=== PATIENT | female | born 1960 | race Two or more races ===

== ENCOUNTER → 2024-05-22 | Outpatient (CLI) | payer BC, SELFPAY ==
--- NOTE | 2024-05-22 10:30 | XR_ITS ---
Examination: Screening digital mammography, bilateral Computer aided detection 3-D breast Tomosynthesis, bilateral Date and time of exam: May 22, 2024 1024 hours Compared to mammograms dating to June 04, 2013 Indication: Screening Technique: Nonmagnified MLO, CC views of the breasts to been obtained, reconstructed from 3-D Tomosynthesis images. R2 computer aided detection program utilized for evaluation of suspicious masses and/or abnormal calcifications. 3-D Tomosynthesis images obtained. Findings: Scattered areas of fibroglandular density. Benign calcifications. No interval suspicious masses Impression: BI-RADS category II: Benign Findings. Recommend 1 year follow-up mammogram.
== END | disposition home or self-care (01) ==
LOC: CDIM 10:12
PROVIDERS: PCP Specialist; Referring Provider Specialist; Visit Provider Specialist
DX: Z12.31 Encounter for screening mammogram for malignant neoplasm of breast (principal); R92.323 Mammographic fibroglandular density, bilateral breasts; R92.1 Mammographic calcification found on diagnostic imaging of breast
CPT/HCPCS: 77063; 77067

== ENCOUNTER 2024-12-03 06:45 | Day surgery (SDC) | payer BC, SELFPAY ==
[2024-11-30 13:16] VITALS: BMI 27.3
[2024-12-03] VITALS (8 sets, daily range): BP systolic 113–150; BP diastolic 66–78; PULSE 49–59; RESP 12–20; TEMP 36.4–36.7; O2SAT 95–99; BMI 26.9
[2024-12-03] MEDS: MIDAZOLAM INJ 1 MG/ML VIAL 2 ML (ASD USE ONLY) 2 MG IVP (07:51)
[2024-12-03] MEDS: fentaNYL CIT INJ 50 mCg/ML AMP 2ML (ASD USE ONLY) IVP (07:51)
[2024-12-03] MEDS: SODIUM CHLORIDE 0.9% 500 ML 500 ML 20 ML IV (07:52)
== END 2024-12-03 08:45 | disposition home or self-care (01) ==
PROVIDERS: PCP Family Medicine; Referring Provider Surgery; Visit Provider Surgery
PROC: 0DBE8ZX Excision of Large Intestine, Via Natural or Artificial Opening Endoscopic, Diagnostic (ICD-10-PCS; CPT 45380; principal; 2024-12-03 07:30)
DX: K62.5 Hemorrhage of anus and rectum (principal); K64.1 Second degree hemorrhoids
CPT/HCPCS: 45378; A4649; J1200; J2250; J3010; J7999

== ENCOUNTER 2025-01-29 07:55 | Day surgery (SDC) | payer BC, SELFPAY ==
--- NOTE | 2025-01-23 11:12 | EKG_ITS ---
[facility] Test Date: 2025-01-23 Pat Name: REN INFANTE Department: Room: - Gender: Female Flooring Mechanic: GUTIERREZ : 1960 Requested By: Dave Stover Order Number: [id number] Reading MD: Dave Stover Measurements Intervals Converse Rate: 55 P: 37 [place]: 154 QRS: 62 QRSD: 97 T: 66 QT: 427 QTc: 410 Interpretive Statements SINUS BRADYCARDIA No previous ECG available for comparison /store/S0/[id number]/[id number]
[2025-01-23 11:15] VITALS: BMI 29.0
[2025-01-23 12:24] LABS: Basophils # (Auto) 0.1 Thou/mm3 (0.0-0.2); Basophils % (Auto) 1 % (0-2.5); Eosinophils # (Auto) 0.0 Thou/mm3 (0.0-0.5); Eosinophils % (Auto) 1 % (0-10); Hematocrit 41.6 % (36.0-46.0); Hemoglobin 13.7 g/dL (12.0-16.0); Immature Granulocytes Auto 0.02 Thou/mm3 (0.00-0.00); Lymphocytes # (Auto) 2.1 Thou/mm3 (1.0-4.8); Lymphocytes % (Auto) 37 % (10-50); Mean Corpuscular HGB Conc 32.9 g/dl (31.0-37.0); Mean Corpuscular Hemoglobin 29.1 pg (25.0-35.0); Mean Corpuscular Volume 89 fL (80-100); Monocytes # (Auto) 0.4 Thou/mm3 (0.0-0.8); Monocytes % (Auto) 7 % (0-12); Neutrophils # (Auto) 3.1 Thou/mm3 (1.8-7.7); Neutrophils % (Auto) 54 % (37-80); Nucleated Red Blood Cell # 0.00 Thou/mm3 (0.00-0.00); Nucleated Red Blood Cell % 0 /100 WBC (0); Platelet Count 234 Thou/mm3 (140-440); RDW Standard Deviation 42.9 fL (36.4-46.3); Red Blood Count 4.70 Miln/mm3 (4.00-5.20); White Blood Count 5.7 Thou/mm3 (3.6-11.0)
[2025-01-23 12:36] LABS: Alanine Aminotransferase 24 U/L (10-49); Albumin, Serum 4.9 gm/dL (3.4-4.8); Albumin/Globulin Ratio 2.1 (1.2-2.2); Alkaline Phosphatase 131 U/L (46-116); Anion Gap 9 (7-16); Aspartate Amino Transferase 26 U/L (0-34); BUN/Creatinine Ratio 15 Ratio (12-20); Bilirubin,Total 1.0 mg/dL (0.3-1.2); Blood Urea Nitrogen 12 mg/dL (9-23); Calcium 9.7 mg/dL (8.3-10.6); Calcium (Corrected) 9.7 mg/dL (8.5-10.1); Carbon Dioxide 28.3 mMol/L (20.0-31.0); Chloride 106 mMol/L (98-107); Creatinine (Component) 0.8 mg/dL (0.6-1.3); Estimated Creatinine Clearance 66.9 mL/min (>60); Globulin 2.3 gm/dL (2.3-3.5); Glucose 93 mg/dL (74-106); Osmolality,Calculated 284 (275-295); Potassium 4.0 mMol/L (3.4-5.1); Sodium 143 mMol/L (136-145); Total Protein 7.2 gm/dL (5.7-8.2); eGFR > 60 See Note
[2025-01-29] VITALS (7 sets, daily range): BP systolic 110–136; BP diastolic 60–82; PULSE 61–78; RESP 12–20; TEMP 36.3–36.7; O2SAT 95–100; BMI 28.9
[2025-01-29] MEDS: RINGERS LACTATED 1000 ML 1,000 ML 20 ML IV (08:43)
--- NOTE | 2025-01-29 10:20 | ESOP_ITS ---
Date of Procedure 01/29/25 Pre Op Diagnosis Grade 3 internal hemorrhoid Rectal bleeding Post Op Diagnosis Grade 3 internal hemorrhoids with external hemorrhoids Rectal bleeding Procedure 2 quadrant internal and external hemorrhoidectomy Ligation of grade 2 internal hemorrhoid Findings Grade 3 internal hemorrhoid with external hemorrhoid components on anterior and left lateral location. Grade 2 internal hemorrhoid over right posterior location Procedure Description Patient brought into the operating room in supine position. After admin istration of general endotracheal anesthesia, patient was placed in prone in jackknife position. Patient's perineum was prepped and draped in standard surgical manner. The anal verge was anesthetized with half percent Marcaine with epinephrine. A Shaikh retractor was placed in the anal canal was inspected. Patient was noted to have grade 3 internal hemorrhoids with external hemorrhoid components over to left lateral and anterior positions. She was also noted to have a grade 2 internal hemorrhoid in the right posterior location. The procedure started in patient's anterior hemorrhoid. An incision was made in the external anal verge and extended proximally around the external as well as internal hemorrhoidal tissue up to the level of dentate line. The anoderm and the hemorrhoidal tissue were lifted off the underlying sphincter muscle up to the level of dentate line, approximately 1 cm width of the anoderm excised. After the hemorrhoidal tissue was excised a figure of 8 suture placed at the apex near dentate line. The anoderm was then re-approximated with the running suture using 2-0 Vicryl, every other suture was incorporating the underlying sphincter muscle. I then turned my attention to patient's left lateral hemorrhoid. Hemorrhoidectomy was performed in similar fashion. After completion of 2 quadrant hemorrhoidectomy, the anal canal was inspected and hemostasis was adequate and satisfactory. Right posterior grade 2 internal hemorrhoid was ligated with a 2-0 Vicryl suture. A Gelfoam wrapped around with Surgicel placed in the anal canal to further assure hemostasis. Patient tolerated the procedure well. Patient was placed in supine position and then extubated. Patient was breathing spontaneously and without difficulty and was transferred to postanesthesia care in stable condition. Instruments, needles and sponge counts were reported to be correct ?2. Anesthesia GETA and local Pathology / specimen Other (Anterior and left lateral hemorrhoidal tissues) Estimated Blood Loss 25 Condition Stable Disposition PACU Surgeon Dave Stover MD Surgical Staff Operation Date: 12/02/25 10:00 Case Staff Anesthesiologist: Abdi Lee communications consultant: Kely Maguire
--- NOTE | 2025-01-29 10:30 | SUR.PHASEI ---
1030: Pt. wakes to name then drifts back to sleep, vitals stable, breathing unlabored, no signs of distress, dressing to rectum CDI, no active bleed noted, report received from Erlinda VINCENT and MD Lee.
--- NOTE | 2025-01-29 11:25 | SUR.PHASEII ---
1125: Pt. AAOx4, vitals stable, breathing unlabored, no complaint of pain or nausea, dressing to rectum CDI, no active bleed noted, pt. tolerated sips of water well, pt. ambulated to wheelchair with steady gait and no assist, no complications. Gave discharge instructions to the pt. and her ride, both verbalized understanding and had no further questions. Pt. left with all personal belongings.
== END 2025-01-29 11:25 | disposition home or self-care (01) ==
PROVIDERS: Anesthesiology; PCP Family Medicine; Referring Provider Surgery; Visit Provider Surgery
PROC: (CPT 46946; principal; 2025-01-29 09:45)
DX: K64.2 Third degree hemorrhoids (principal); K64.4 Residual hemorrhoidal skin tags; Z01.810 Encounter for preprocedural cardiovascular examination
CPT/HCPCS: 46946; 36415; 80053; 85025; 93005; A4649; J0131; J0694; J2250; J2704; J3010; J3490; J7120